=== PATIENT | female | born 1955 | race Caucasian/White ===

== ENCOUNTER → 2017-06-24 | Day surgery (SDC) | payer OTHER ==
[~2017-06-24] MED LIST: 0.9% Sodium Chloride 1,000 ML IV SCH; CALC-235 PO; DEXL60CA5 PO; MAGN400T39 PO; MULT-1018 PO; OMEG500C PO; Sodium Chloride LOK Flush 10 mL Syringe IV PRN; WHEA98PO PO; fentaNYL-PF 50 mCg/mL 2 mL Inj IVPUSH PRN
[2017-06-24 11:34] VITALS: BP 108/58; PULSE 56; RESP 16; O2SAT 95
[2017-06-24 13:09] VITALS: BP 114/56; PULSE 68; RESP 12; O2SAT 100
[2017-06-24 13:21] VITALS: BP 95/46; PULSE 59; RESP 12; O2SAT 100
[2017-06-24 13:25] VITALS: BP 107/42; PULSE 57; RESP 12; O2SAT 99
--- NOTE | 2017-06-24 13:27 | ENDO ---
[address] [address] ENDOSCOPY PROCEDURE PATIENT: GLENDY CARNES : 1955 MR#: [id number] ADMIT: 06/24/2017 JOB ID: [id number] PROCEDURE PERFORMED: Colonoscopy. INDICATION: Patient with a history of adenomatous colon polyp. The patient's ASA classification is I. Mallampati score is II. MEDICATIONS: Versed 4 mg, fentanyl 100 mcg. INSTRUMENT USED: PCF-H180AL. PREPARATION QUALITY: Good. PROCEDURE DETAILS: After informed consent was obtained, the patient was brought into the GI suite where she was placed on oxygen via nasal cannula and monitored with continuous pulse oximeter, telemetry, and blood pressure monitoring. A time-out was performed. Then, she was placed in a left lateral decubitus position and medications were administered for sedation. A digital rectal exam was performed which was unremarkable. The colonoscope was then inserted into the rectum and advanced under direct visualization to the cecum, which was identified by the presence of the ileocecal valve and appendiceal orifice. Once the cecum was reached, the colonoscope was withdrawn back in the rectum, and the mucosa and lumen were examined. In the rectum, retroflexion was performed. Following retroflexion, remaining air in the rectum was suctioned and procedure was completed. FINDINGS: Normal exam from rectum to cecum. IMPRESSION: Normal colonoscopy. RECOMMENDATIONS: Repeat colonoscopy in three years, sooner if symptoms should dictate. COMPLICATIONS: None. ESTIMATED BLOOD LOSS: Zero.
[2017-06-24 13:28] VITALS: BP 106/53; PULSE 56; RESP 14; O2SAT 100
[2017-06-24 13:37] VITALS: BP 106/53; PULSE 56; RESP 14; O2SAT 100
== END | disposition home or self-care (01) ==
LOC: EDUNIT# 06-10 08:00 → END 00:05
PROVIDERS: ATTEND Internal Medicine Gastroenterology
DX: Z12.11 Encounter for screening for malignant neoplasm of colon (principal); Z86.010 Personal history of colon polyps; K21.9 Gastro-esophageal reflux disease without esophagitis; R13.14 Dysphagia, pharyngoesophageal phase
CPT/HCPCS: 99153; G0105; G0500; J2250; J3010; J7030